=== PATIENT | male | born 1960 | race Caucasian/White ===

== ENCOUNTER 2017-10-31 15:32 | Inpatient (IN) | payer BC ==
[2017-10-31 17:27] VITALS: BMI 29.9
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
[2017-10-31] MEDS ORDERED: chlordiazePOXIDE HCL 25 MG CAPSULE PO PRN (18:28)
[2017-10-31] MEDS ORDERED: IBUPROFEN 400 MG TABLET (FP) PO PRN (18:28)
[2017-10-31] MEDS ORDERED: ACETAMINOPHEN 325 MG TABLET (FP) PO PRN (18:28)
[2017-10-31] MEDS ORDERED: MAGNESIUM HYDROX 2400MG/30ML ORAL SUSPENSION 30 ML CUP PO PRN (18:28)
[2017-10-31] MEDS ORDERED: P-EPHED 60MG/TRIPROLIDI 2.5MG TABLET PO PRN (18:28)
[2017-10-31] MEDS ORDERED: MENTHOL/PHENOL 1 EACH UD MM PRN (18:28)
[2017-10-31] MEDS ORDERED: MAG HYDROX/AL HYDROX/SIMETH 30 ML UNIT-DOSE CUP PO PRN (18:28)
[2017-10-31] MEDS ORDERED: MAGNESIUM CITRATE 300 ML BOTTLE PO PRN (18:28)
[2017-10-31] MEDS ORDERED: guaiFENesin/D-METHORPHAN HB 10 ML UNIT-DOSE CUPS PO PRN (18:28)
[2017-10-31] MEDS ORDERED: LOPERAMIDE HCL 2 MG CAPSULE PO PRN (18:28)
[2017-10-31] MEDS ORDERED: ALBUTEROL SO4 0.083% IH SOL 2.5 MG/3 ML VIAL.NEB. NEB PRN (18:30)
[2017-10-31] MEDS ORDERED: MELATONIN 5 MG TABLETS PO PRN (22:00)
[2017-10-31] MEDS: chlordiazePOXIDE HCL 25 MG CAPSULE PO SCH (22:51)
[2017-10-31] MEDS: THIAMINE HCL 100 MG TABLET (FP) PO SCH (22:51)
[2017-11-01 02:03] LABS: URINE APPEARANCE SLCLOUDY; URINE BILIRUBIN NEGATIVE (<2.0 mg/dL); URINE COLOR YELLOW; URINE GLUCOSE (UA) NEGATIVE (NEGATIVE); URINE KETONE NEGATIVE (NEGATIVE); URINE LEUK ESTERASE TRACE (NEGATIVE); URINE NITRITE NEGATIVE (NEGATIVE); URINE PROTEIN NEGATIVE (NEGATIVE); URINE UROBILINOGEN NEGATIVE mg/dL (0.2-1.0)
[2017-11-01 02:54] LABS: CALCIUM OXALATE CRYSTALS MANY /hpf (NONE SEEN); EPI CELLS RARE /HPF (FEW); URINE MUCUS RARE
[2017-11-01] MEDS: chlordiazePOXIDE HCL 25 MG CAPSULE PO SCH ×3 (05:55→18:05)
[2017-11-01] MEDS ORDERED: METHADONE HCL 10 MG TABLET PO ONE (10:00)
[2017-11-01] MEDS ORDERED: METHADONE 120 MG, METHADONE 30 MG PO ONE (10:00)
[2017-11-01 10:04] LABS: HEMOGLOBIN 11.8 GM/dL (11.7-16.9); MCHC 32.8 g/dl (32.0-35.9); MEAN CELL VOLUME 88.2 fl (80-96); MEAN PLT VOLUME 8.9 fl (7.5-11.1); PLATELET COUNT 162 K/MM3 (134-434); RBC 4.08 M/mm3 (4.00-5.60); RDW 13.3 % (11.9-15.9); WHITE BLOOD COUNT 6.2 K/mm3 (4.0-10.0)
[2017-11-01] MEDS: PRENATAL VITAMINS W/ FOLIC ACID TABLET (FP) PO SCH (10:24)
[2017-11-01] MEDS: NICOTINE 7 MG/24 HOURS TOPICAL PATCH TD SCH (10:24)
[2017-11-01] MEDS ORDERED: METHADONE HCL 40 MG DISPERSABLE TABLET ONE (10:25)
[2017-11-01] MEDS ORDERED: METHADONE HCL 10 MG TABLET ONE (10:26)
[2017-11-01 10:41] LABS: ALK PHOS 58 U/L (45-117); ANION GAP 5 MMOL/L (8-16); BILIRUBIN,TOTAL 0.3 mg/dL (0.2-1); BLOOD UREA NITROGEN 16 mg/dL (7-18); CALCIUM 8.5 mg/dL (8.5-10.1); CHLORIDE 108 mmol/L (98-107); CO2 32 mmol/L (21-32); CREATININE 0.8 mg/dL (0.55-1.3); GLUCOSE,RANDOM 83 mg/dL (74-106); POTASSIUM 4.5 mmol/L (3.5-5.1); SGOT/AST 27 U/L (15-37); SGPT/ALT 23 U/L (13-61); SODIUM 145 mmol/L (136-145); TOT PROT 5.9 g/dl (6.4-8.2)
--- NOTE | 2017-11-01 11:44 | EKG ---
Test Reason : Blood Pressure : / mmHG Vent. Rate : 054 BPM Atrial Rate : 054 BPM P-R Int : 148 ms QRS Dur : 092 ms QT Int : 466 ms P-R-T Axes : 068 041 060 degrees QTc Int : 441 ms POOR DATA QUALITY, INTERPRETATION MAY BE ADVERSELY AFFECTED SINUS BRADYCARDIA OTHERWISE NORMAL ECG WHEN COMPARED WITH ECG OF 18-AUG-2017 00:06, NO SIGNIFICANT CHANGE WAS FOUND Confirmed by CYNDEE HAWKINS, EDNA ([id number]) on 11/01/2017 11:44:25 AM Referred By: Confirmed By:EDNA COTTER MD
--- NOTE | 2017-11-01 12:01 | PN ---
S CIWA - CIWA Score Nausea/Vomitin-Mild Nausea/No Vomiting Muscle Tremors: 4-Moderate,w/Arms Extend Anxiety: 3 Agitation: 4-Moderately Restless Paroxysmal Sweats: 1-Minimal Palms Moist Orientation: 0-Oriented Tacttile Disturbances: 1-Very Mild Itch/Numbness Auditory Disturbances: 0-None Visual Disturbances: 0-None Headache: 0-None Present CIWA-Ar Total Score: 14 BHS Progress Note (SOAP) Subjective: tremor sweat restlessness anxiety methadone verified begin 150 mg Objective: 11/01/17 12:00 Vital Signs Temperature 98.2 F 11/01/17 09:27 Pulse Rate 68 11/01/17 09:27 Respiratory Rate 18 11/01/17 09:27 Blood Pressure 110/73 11/01/17 09:27 O2 Sat by Pulse Oximetry (%) Laboratory Last Values WBC 6.2 K/mm3 (4.0-10.0) 11/01/17 07:30 RBC 4.08 M/mm3 (4.00-5.60) 11/01/17 07:30 Hgb 11.8 GM/dL (11.7-16.9) 11/01/17 07:30 Hct 36.0 % (35.4-49) 11/01/17 07:30 MCV 88.2 fl (80-96) 11/01/17 07:30 MCH 29.0 pg (25.7-33.7) 11/01/17 07:30 MCHC 32.8 g/dl (32.0-35.9) 11/01/17 07:30 RDW 13.3 % (11.9-15.9) 11/01/17 07:30 Plt Count 162 K/MM3 (134-434) 11/01/17 07:30 MPV 8.9 fl (7.5-11.1) 11/01/17 07:30 Sodium 145 mmol/L (136-145) 11/01/17 07:30 Potassium 4.5 mmol/L (3.5-5.1) 11/01/17 07:30 Chloride 108 mmol/L (98-107) H 11/01/17 07:30 Carbon Dioxide 32 mmol/L (21-32) 11/01/17 07:30 Anion Gap 5 MMOL/L (8-16) L 11/01/17 07:30 BUN 16 mg/dL (7-18) 11/01/17 07:30 Creatinine 0.8 mg/dL (0.55-1.3) 11/01/17 07:30 Creat Clearance w eGFR > 60 (>60) 11/01/17 07:30 Random Glucose 83 mg/dL (74-106) 11/01/17 07:30 Calcium 8.5 mg/dL (8.5-10.1) 11/01/17 07:30 Total Bilirubin 0.3 mg/dL (0.2-1) 11/01/17 07:30 AST 27 U/L (15-37) 11/01/17 07:30 ALT 23 U/L (13-61) 11/01/17 07:30 Alkaline Phosphatase 58 U/L (45-117) 11/01/17 07:30 Total Protein 5.9 g/dl (6.4-8.2) L 11/01/17 07:30 Albumin 3.0 g/dl (3.4-5.0) L 11/01/17 07:30 Urine Color Yellow 10/31/17 20:08 Urine Appearance Slcloudy 10/31/17 20:08 Urine pH 5.0 (5.0-8.0) 10/31/17 20:08 Ur Specific [place] 1.028 (1.001-1.035) 10/31/17 20:08 Urine Protein Negative (NEGATIVE) 10/31/17 20:08 Urine Glucose (UA) Negative (NEGATIVE) 10/31/17 20:08 Urine Ketones Negative (NEGATIVE) 10/31/17 20:08 Urine Blood Negative (NEGATIVE) 10/31/17 20:08 Urine Nitrite Negative (NEGATIVE) 10/31/17 20:08 Urine Bilirubin Negative (<2.0 mg/dL) 10/31/17 20:08 Urine Urobilinogen Negative mg/dL (0.2-1.0) 10/31/17 20:08 Ur Leukocyte Esterase Trace (NEGATIVE) 10/31/17 20:08 Urine WBC (Auto) None /hpf (3-5) 10/31/17 20:08 Urine RBC (Auto) 3 /hpf (0-3) 10/31/17 20:08 Ur Epithelial Cells Rare /HPF (FEW) 10/31/17 20:08 Calcium Oxalate Crystal Many /hpf (NONE SEEN) 10/31/17 20:08 Urine Mucus Rare 10/31/17 20:08 RPR Titer Nonreactive (NONREACTIVE) 11/01/17 07:30 lab noted Assessment: 11/01/17 12:01 alcohol withdrawal sx Plan: continue detox
[2017-11-01] MEDS: chlordiazePOXIDE 5 MG CAPSULE PO SCH ×2 (22:43→23:03)
[2017-11-01] MEDS: THIAMINE HCL 100 MG TABLET (FP) PO SCH ×2 (22:43→23:05)
[2017-11-01] MEDS ORDERED: chlordiazePOXIDE HCL 25 MG CAPSULE PO SCH (23:00)
[2017-11-02] MEDS ORDERED: METHADONE HCL 10 MG TABLET ONE (04:19)
[2017-11-02] MEDS ORDERED: METHADONE HCL 40 MG DISPERSABLE TABLET ONE (04:19)
[2017-11-02] MEDS: METHADONE 120 MG, METHADONE 30 MG PO SCH (05:36)
[2017-11-02] MEDS: chlordiazePOXIDE 5 MG CAPSULE PO SCH ×4 (05:37→22:15)
[2017-11-02] MEDS ORDERED: METHADONE HCL 10 MG TABLET PO SCH (06:00)
[2017-11-02] MEDS: NICOTINE 7 MG/24 HOURS TOPICAL PATCH TD SCH (10:35)
[2017-11-02] MEDS: PRENATAL VITAMINS W/ FOLIC ACID TABLET (FP) PO SCH (10:35)
--- NOTE | 2017-11-02 13:20 | PN ---
S CIWA - CIWA Score Nausea/Vomitin Muscle Tremors: None Anxiety: 0-No Anxiety, at Ease Agitation: 0-Normal Activity Paroxysmal Sweats: No Perspiration Orientation: 0-Oriented Tacttile Disturbances: 0-None Auditory Disturbances: 0-None Visual Disturbances: 0-None Headache: 0-None Present CIWA-Ar Total Score: 5 BHS Progress Note (SOAP) Subjective: Patient c/o nausea and vomiting x one. Objective: 11/02/17 13:18 Laboratory Tests 10/31/17 11/01/17 11/01/17 20:08 07:30 07:30 WBC 6.2 RBC 4.08 Hgb 11.8 Hct 36.0 MCV 88.2 MCH 29.0 MCHC 32.8 RDW 13.3 Plt Count 162 MPV 8.9 Sodium 145 Potassium 4.5 Chloride 108 H Carbon Dioxide 32 Anion Gap 5 L BUN 16 Creatinine 0.8 Creat Clearance w eGFR > 60 Random Glucose 83 Calcium 8.5 Total Bilirubin 0.3 AST 27 ALT 23 Alkaline Phosphatase 58 Total Protein 5.9 L Albumin 3.0 L Urine Color Yellow Urine Appearance Slcloudy Urine pH 5.0 Ur Specific [place] 1.028 Urine Protein Negative Urine Glucose (UA) Negative Urine Ketones Negative Urine Blood Negative Urine Nitrite Negative Urine Bilirubin Negative Urine Urobilinogen Negative Ur Leukocyte Esterase Trace Urine WBC (Auto) None Urine RBC (Auto) 3 Ur Epithelial Cells Rare Calcium Oxalate Crystal Many Urine Mucus Rare RPR Titer 11/01/17 07:30 WBC RBC Hgb Hct MCV MCH MCHC RDW Plt Count MPV Sodium Potassium Chloride Carbon Dioxide Anion Gap BUN Creatinine Creat Clearance w eGFR Random Glucose Calcium Total Bilirubin AST ALT Alkaline Phosphatase Total Protein Albumin Urine Color Urine Appearance Urine pH Ur Specific [place] Urine Protein Urine Glucose (UA) Urine Ketones Urine Blood Urine Nitrite Urine Bilirubin Urine Urobilinogen Ur Leukocyte Esterase Urine WBC (Auto) Urine RBC (Auto) Ur Epithelial Cells Calcium Oxalate Crystal Urine Mucus RPR Titer Nonreactive Vital Signs Temperature 98.5 F 11/02/17 08:59 Pulse Rate 55 L 11/02/17 08:59 Respiratory Rate 18 11/02/17 08:59 Blood Pressure 98/58 L 11/02/17 08:59 O2 Sat by Pulse Oximetry (%) PE: alert and oriented x 3 skin warm and dry car s1s2 resp cta bl gi soft, bs+, nt, nd a/p withdrawal syndrome. continue detox encourage oral fluids consider zofran if vomiting continues continue to monitor Assessment: 11/02/17 13:20 a/p withdrawal syndrome. Plan: continue detox encourage oral fluids consider zofran if vomiting continues continue to monitor 11/02/17 13:20
[2017-11-02] MEDS: THIAMINE HCL 100 MG TABLET (FP) PO SCH (22:16)
[2017-11-03] MEDS ORDERED: METHADONE HCL 40 MG DISPERSABLE TABLET ONE (02:39)
[2017-11-03] MEDS ORDERED: METHADONE HCL 10 MG TABLET ONE (02:39)
[2017-11-03] MEDS: chlordiazePOXIDE 5 MG CAPSULE PO SCH ×2 (05:22→10:16)
[2017-11-03] MEDS: METHADONE 120 MG, METHADONE 30 MG PO SCH (05:23)
[2017-11-03 05:48] VITALS: PULSE 52
[2017-11-03 09:15] VITALS: BP 102/61; TEMP 98.2
[2017-11-03] MEDS: NICOTINE 7 MG/24 HOURS TOPICAL PATCH TD SCH (10:16)
[2017-11-03] MEDS: PRENATAL VITAMINS W/ FOLIC ACID TABLET (FP) PO SCH (10:16)
--- NOTE | 2017-11-03 10:40 | PN ---
BHS Progress Note (SOAP) Subjective: mild sweats anxiety Objective: 11/03/17 10:39 Vital Signs Temperature 98.2 F 11/03/17 09:14 Pulse Rate 52 L 11/03/17 09:14 Respiratory Rate 18 11/03/17 09:14 Blood Pressure 102/61 11/03/17 09:14 O2 Sat by Pulse Oximetry (%) [id number] ambulating no acute distress Assessment: 11/03/17 10:39 mild withdrawal sx Plan: continue to detox increase fluids
--- NOTE | 2017-11-03 12:11 | PN ---
[facility] Progress Note Note: pt states he was feeling fine no s/s withdrawals and want to go to rehab today. 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
[2017-11-03] MEDS ORDERED: chlordiazePOXIDE HCL 10 MG CAPSULE PO SCH (23:00)
== END 2017-11-03 12:11 | disposition home or self-care (01) | DRG 775 ==
LOC: YASAS 15:32 → Y6N 19:08
PROC: HZ2ZZZZ Detoxification Services for Substance Abuse Treatment (ICD-10-PCS; principal; 2017-10-31)
DX: F10.230 Alcohol dependence with withdrawal, uncomplicated (principal); F13.230 Sedative, hypnotic or anxiolytic dependence with withdrawal, uncomplicated; F32.9 Major depressive disorder, single episode, unspecified; B18.2 Chronic viral hepatitis C; Z59.0 Homelessness
CPT/HCPCS: 36415; 80053; 81003; 81015; 85027; 86593; 93005; 93010